=== PATIENT | male | born 1995 | race Asian ===

== ENCOUNTER 2021-06-08 18:45 | Emergency (ER) | payer OTHER, SELFPAY ==
[2021-06-08 19:57] VITALS: BP 128/80; PULSE 76; RESP 18; TEMP 36.9; O2SAT 99; BMI 25.8
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
== END 2021-06-08 23:08 | disposition home or self-care (01) ==
PROVIDERS: Emergency Provider Emergency Medicine
DX: F07.81 Postconcussional syndrome (principal)
CPT/HCPCS: 99283